=== PATIENT | male | born 1985 | race Caucasian/White ===

== ENCOUNTER 2019-05-14 05:52 | Emergency (ER) | payer OTHER ==
[~2019-05-14] VITALS: Ht 180.3 cm; Wt 75.0 kg
[2019-05-14] MEDS ORDERED: DIPHENHYDRAM25 M4 PO (06:09)
[2019-05-14] MEDS ORDERED: HYDROXYZ HCL25 MG PO (06:31)
[2019-05-14] MEDS ORDERED: STERAPRED DS10 MG PO (06:31)
[2019-05-14 06:45] VITALS: BP 147/89
== END 2019-05-14 06:45 | disposition home or self-care (01) ==
LOC: ED 05:52
DX: L23.5 Allergic contact dermatitis due to other chemical products (principal); Y92.239 Unspecified place in hospital as the place of occurrence of the external cause

== ENCOUNTER 2022-05-17 07:36 | Day surgery (SDC) | payer SELFPAY ==
[~2022-05-17] VITALS: Ht 182.9 cm; Wt 68.0 kg
[~2022-05-17 07:36] MED LIST: ALPRAZOLAM ER1 MG PO; DIPHENHYDRAM25 M4 PO; HYDROXYZ HCL25 MG PO; STERAPRED DS10 MG PO
[2022-05-17] MEDS ORDERED: PERCOCET 5/325M1 TAB PO (09:42)
[2022-05-17 10:50] VITALS: BP 136/106
== END 2022-05-17 10:37 | disposition home or self-care (01) | DRG 349 ==
LOC: ORM 07:36 → ENDO 05-24 09:30
PROVIDERS: ATTEND Surgery
PROC: 0DJD8ZZ Inspection of Lower Intestinal Tract, Via Natural or Artificial Opening Endoscopic (ICD-10-PCS; principal; 2022-05-17)
PROC: 06BY3ZC Excision of Hemorrhoidal Plexus, Percutaneous Approach (ICD-10-PCS; 2022-05-17)
DX: K64.8 Other hemorrhoids (principal); K64.4 Residual hemorrhoidal skin tags; F41.9 Anxiety disorder, unspecified
CPT/HCPCS: C9290; J0131